=== PATIENT | female | born 1985 | race Caucasian/White ===

== ENCOUNTER → 2018-03-19 | Outpatient (CLI) | payer BC ==
--- NOTE | 2018-03-19 15:20 | XR ---
EXAMINATION TYPE: XR foot complete RT DATE OF EXAM: 03/19/2018 COMPARISON: 02/17/2008 HISTORY: Right ankle pain TECHNIQUE: Right foot is examined in 3 projections. FINDINGS: Hallux valgus deformity is present. Some varus deformity of the fifth digit is present. No acute displaced fractures are evident. Soft tissues are unremarkable. Follow-up exams can be performed 7-10 days from acute trauma for continued pain. IMPRESSION: 1. No acute osseous abnormality three-view right foot
--- NOTE | 2018-03-19 15:21 | XR ---
EXAMINATION TYPE: XR ankle complete RT DATE OF EXAM: 03/19/2018 COMPARISON: None HISTORY: Rolled ankle, pain TECHNIQUE: Three-view right ankle FINDINGS: Minimal soft tissue swelling is over the lateral malleolus. Ankle mortise is intact. No dis placed fractures are evident. Achilles tendon calcaneal heel spur is present. Follow-up exams can be performed 7-10 days from acute trauma for continued pain IMPRESSION: 1. Mild soft tissue swelling lateral malleolus.
== END ==
LOC: RADXRYALE 13:54
PROVIDERS: ATTEND Physician Assistant Medical
DX: M79.89 Other specified soft tissue disorders (principal); M25.571 Pain in right ankle and joints of right foot

== ENCOUNTER → 2019-07-25 | Outpatient (CLI) | payer BC | END | disposition home or self-care (01) | LOC: LABWHC1 14:02 | PROVIDERS: ATTEND Obstetrics & Gynecology | DX: O20.0 Threatened abortion (principal) | CPT/HCPCS: 36415; 84702 ==

== ENCOUNTER → 2020-10-01 | Outpatient (CLI) | payer BC | END | disposition home or self-care (01) | LOC: LABWHC1 10:36 | PROVIDERS: ATTEND Obstetrics & Gynecology | DX: N92.6 Irregular menstruation, unspecified (principal) | CPT/HCPCS: 36415; 84702 ==

== ENCOUNTER → 2020-10-04 | Outpatient (CLI) | payer BC | END | disposition home or self-care (01) | LOC: LABWHC1 07:43 | PROVIDERS: ATTEND Obstetrics & Gynecology | DX: O20.0 Threatened abortion (principal); Z3A.00 Weeks of gestation of pregnancy not specified | CPT/HCPCS: 36415; 84702 ==

== ENCOUNTER → 2020-10-14 | Outpatient (CLI) | payer BC | END | disposition home or self-care (01) | LOC: LABWHC1 09:44 | PROVIDERS: ATTEND Obstetrics & Gynecology | DX: O03.9 Complete or unspecified spontaneous abortion without complication (principal); Z3A.00 Weeks of gestation of pregnancy not specified | CPT/HCPCS: 36415; 84702 ==

== ENCOUNTER → 2020-10-25 | Outpatient (CLI) | payer BC | END | disposition home or self-care (01) | LOC: LABWHC1 07:51 | PROVIDERS: ATTEND Obstetrics & Gynecology | DX: O20.0 Threatened abortion (principal); Z3A.00 Weeks of gestation of pregnancy not specified | CPT/HCPCS: 36415; 84702 ==

== ENCOUNTER → 2020-11-01 | Outpatient (CLI) | payer BC ==
[2020-11-01 11:03] LABS: Basophils % (A) 0 %; Eosinophils # (A) 0.2 k/uL (0-0.7); Eosinophils % (A) 2 %; HCT 42.9 % (34.0-46.0); HGB 14.9 gm/dL (11.4-16.0); Lymphocytes # (A) 3.5 k/uL (1.0-4.8); Lymphocytes % (A) 43 %; MCH 31.7 pg (25.0-35.0); MCHC 34.8 g/dL (31.0-37.0); MCV 91.2 fL (80.0-100.0); Mean Platelet Volume 7.7; Monocytes # (A) 0.3 k/uL (0-1.0); Monocytes % (A) 4 %; Neutrophils # (A) 4.1 k/uL (1.3-7.7); Neutrophils % (A) 50 %; Platelet Count 223 k/uL (150-450); RDW 12.4 % (11.5-15.5); WBC 8.2 k/uL (3.8-10.6)
== END | disposition home or self-care (01) ==
LOC: LABPAT 09:07
PROVIDERS: ATTEND Obstetrics & Gynecology
DX: Z01.812 Encounter for preprocedural laboratory examination (principal)
CPT/HCPCS: 36415; 85025

== ENCOUNTER 2020-11-02 11:15 | Day surgery (SDC) | payer BC ==
[2020-10-29 09:13] VITALS: BMI 35.6
--- NOTE | 2020-11-02 08:52 | P.HPOB ---
History of Present Illness H&P Date: 11/02/20 Chief Complaint: blighted ovum 35 year old with blighted ovum presents for suction D&C. Review of Systems All systems: negative Constitutional: Denies chills, Denies fever Eyes: denies blurred vision, denies pain Ears, nose, mouth and throat: Denies headache, Denies sore throat Cardiovascular: Denies chest pain, Denies shortness of breath Respiratory: Denies cough Gastrointestinal: Denies abdominal pain, Denies diarrhea, Denies nausea, Denies vomiting Genitourinary: Denies dysuria, Denies hematuria Musculoskeletal: Denies myalgias Integumentary: Denies pruritus, Denies rash Neurological: Denies numbness, Denies weakness Psychiatric: Denies anxiety, Denies depression Endocrine: Denies fatigue, Denies weight change Past Medical History Past Medical History: No Reported History History of Any Multi-Drug Resistant Organisms: None Reported Past Surgical History: Adenoidectomy, Ear Surgery Additional Past Surgical History / Comment(s): SURG. FOR A PERF. EAR DRUM Past Anesthesia/Blood Transfusion Reactions: No Reported Reaction Past Psychological History: No Psychological Hx Reported Smoking Status: Current every day smoker Past Alcohol Use History: None Reported Past Drug Use History: None Reported - Past Family History Father Family Medical History: Unable to Obtain Medications and Allergies Home Medications Medication Instructions Recorded Confirmed Type No Known Home Medications 10/29/20 10/29/20 History Allergies Allergy/AdvReac Type Severity Reaction Status Date / Time No Known Allergies Allergy Verified 10/29/20 09:05 Exam Osteopathic Statement: *. No significant issues noted on an osteopathic structural exam other than those noted in the History and Physical/Consult. HEart: RRR Lungs: CTAB Abdomen: soft, nontender Extremeties: neg jj's Assessment and Plan (1) Blighted ovum Status: Acute Code(s): O02.0 - BLIGHTED OVUM AND NONHYDATIDIFORM MOLE SNOMED Code(s): 97603925 Plan: 1. suction D&C
[~2020-11-02 11:15] MED LIST: DEXAMETHASONE SOD PHOSPHATE 4 MG/ML 1 ML VIAL IV ONE; LACTATED RINGERS 1,000 ML IV SCH; LIDOCAINE 1% (10MG/ML) FOR IV START INTRADERMA PRN; ONDANSETRON 4 MG/2 ML VIAL IVP ONE; Pre Op ABX Message 1 EACH MISC MISCELLANE ONE; SCOPOLAMINE 1.5MG/72HR PATCH TRANSDERM ONE
[2020-11-02] MEDS ORDERED: KETOROLAC 15 MG/ML 1 ML VIAL ONE (13:13)
[2020-11-02] MEDS ORDERED: PROPOFOL 10 MG/ML 20 ML VIAL IV ONE (13:13)
[2020-11-02] MEDS ORDERED: fentaNYL (PF) 50 MCG/ML 2 ML AMP ONE (13:13)
[2020-11-02] MEDS ORDERED: LIDOCAINE 1% INJ 10MG/ML (20 ML MDV) ONE (13:13)
[2020-11-02] MEDS ORDERED: MIDAZOLAM 2 MG/2 ML VIAL ONE (13:13)
--- NOTE | 2020-11-02 13:42 | P.OP ---
Date of Procedure: 11/02/20 Preoperative Diagnosis: 1. blighted ovum Postoperative Diagnosis: 1.blighted ovum Procedure(s) Performed: Suction D&C Anesthesia: MAC Surgeon: Anne-Marie Hernandez Estimated Blood Loss (ml): 200 IV fluids (ml): 300 Urine output (ml): 25 Pathology: other (Uterine contents) Condition: stable Disposition: PACU Operative Findings: A large amount of uterine contents Description of Procedure: Patient taken the operating general anesthesia was obtained without difficulty. She prepped draped in normal sterile fashion dorsal lithotomy position, legs placed in stirrups. Bladder was drained of all urine. Weighted speculum placed in vagina and the anterior lip the cervix was grasped with a sickle tooth tenaculum. Cervix is dilated to #8 Hegar dilator. Suction curet was passed several times to ensure all blood and tissue had been removed. Sharp curet was also used to remove some tissue. Hemostasis was achieved. All instruments removed from the vagina. Patient to our procedure well, sponge and instrument counts correct 2. She is taken to recovery in stable condition.
[2020-11-02 13:55] VITALS: TEMP 97.1
[2020-11-02] MEDS: HYDROmorphone 0.5 MG/0.5 ML SYRINGE IVP PRN ×2 (14:10→14:23)
[2020-11-02] MEDS ORDERED: LACTATED RINGERS 1,000 ML IV ONE (14:29)
[2020-11-02] MEDS ORDERED: diphenhydrAMINE 50 MG/ML 1 ML VIAL ONE (14:30)
[2020-11-02] MEDS ORDERED: diphenhydrAMINE 50 MG/ML 1 ML VIAL IVP ONE (14:32)
[2020-11-02 14:55] VITALS: RESP 16
[2020-11-02 15:25] VITALS: BP 110/72; PULSE 60
== END 2020-11-02 15:28 | disposition home or self-care (01) ==
LOC: OR 11:15
PROVIDERS: ATTEND Obstetrics & Gynecology
DX: O02.0 Blighted ovum and nonhydatidiform mole (principal); F17.200 Nicotine dependence, unspecified, uncomplicated
CPT/HCPCS: 59820; 86900; 86901; 88305; 86850; J2250; J1200; J1100; J2405; J2001; J3010; J1885; J2704; J1170

== ENCOUNTER 2022-02-12 06:00 | Inpatient (IN) | payer BC ==
[2022-02-12] MEDS ORDERED: TERBUTALINE 1 MG/ML VIAL SQ PRN (06:20)
[2022-02-12] MEDS ORDERED: LIDOCAINE 0.5% (PF) 5 MG/ML (50 ML SDV) SQ PRN (06:20)
[2022-02-12] MEDS ORDERED: OXYTOCIN 30 UNITS/500 ML NS 30 UNIT in SALINE 1 500ML.BAG IV SCH ×2 (06:30→17:45)
[2022-02-12] MEDS: LACTATED RINGERS 1,000 ML IV SCH ×4 (06:34→19:50)
[2022-02-12 06:36] LABS: Basophils # (A) 0.1 k/uL (0-0.2); Basophils % (A) 1 %; Eosinophils # (A) 0.1 k/uL (0-0.7); Eosinophils % (A) 1 %; HCT 38.1 % (34.0-46.0); Lymphocytes # (A) 2.3 k/uL (1.0-4.8); Lymphocytes % (A) 24 %; MCH 33.1 pg (25.0-35.0); MCHC 36.7 g/dL (31.0-37.0); Mean Platelet Volume 8.2; Monocytes # (A) 0.3 k/uL (0-1.0); Monocytes % (A) 4 %; Neutrophils # (A) 6.5 k/uL (1.3-7.7); Neutrophils % (A) 69 %; Platelet Count 232 k/uL (150-450); RBC 4.23 m/uL (3.80-5.40); RDW 13.4 % (11.5-15.5); WBC 9.4 k/uL (3.8-10.6)
--- NOTE | 2022-02-12 09:16 | P.HPOB ---
History of Present Illness H&P Date: 02/12/22 Chief Complaint: Induction of labor 36 year old presents at 40 weeks 3 days for induction of labor. Her cervix is 1-2 cm dilated, 60% effaced, and -2 station. She is edin irregularly. heart tones 135 with moderate variability and reactive. Review of Systems All systems: negative Constitutional: Denies chills, Denies fever Eyes: denies blurred vision, denies pain Ears, nose, mouth and throat: Denies headache, Denies sore throat Cardiovascular: Denies chest pain, Denies shortness of breath Respiratory: Denies cough Gastrointestinal: Denies abdominal pain, Denies diarrhea, Denies nausea, Denies vomiting Genitourinary: Denies dysuria, Denies hematuria Musculoskeletal: Denies myalgias Integumentary: Denies pruritus, Denies rash Neurological: Denies numbness, Denies weakness Psychiatric: Denies anxiety, Denies depression Endocrine: Denies fatigue, Denies weight change Past Medical History Past Medical History: No Reported History Additional Past Medical History / Comment(s): Obstetric history: Patient has had 3 spontaneous abortions and 2 normal vaginal deliveries. Blood type O+, antibodies negative, rubella immune, RPR reactive but treponemal antibody negative GBS negative, hepatitis B negative History of Any Multi-Drug Resistant Organisms: None Reported Past Surgical History: Adenoidectomy, Ear Surgery Additional Past Surgical History / Comment(s): SURG. FOR A PERF. EAR DRUM Past Anesthesia/Blood Transfusion Reactions: No Reported Reaction Past Psychological History: No Psychological Hx Reported Smoking Status: Current every day smoker Past Alcohol Use History: None Reported Past Drug Use History: None Reported - Past Family History Father Family Medical History: Unable to Obtain Medications and Allergies Home Medications Medication Instructions Recorded Confirmed Type Ibuprofen [Motrin] 600 mg PO Q6HR PRN #30 tab 11/02/20 Rx Allergies Allergy/AdvReac Type Severity Reaction Status Date / Time No Known Allergies Allergy Verified 11/02/20 11:47 Exam Osteopathic Statement: *. No significant issues noted on an osteopathic structural exam other than those noted in the History and Physical/Consult. Vital Signs Temp Pulse Resp BP Pulse Ox 02/12/22 06:19 96.8 F L 89 16 121/79 99 Intake and Output 02/11/22 02/12/22 02/12/22 22:59 06:59 14:59 Other: Weight 107.955 kg Heart: Regular rate and rhythm Lungs: Clear to auscultation bilaterally Abdomen: Soft, nontender Extremities: Negative Homans sign Results Result Diagrams: 02/12/22 06:15 Assessment and Plan (1) Encounter for induction of labor Current Visit: Yes Status: Acute Code(s): Z34.90 - ENCNTR FOR SUPRVSN OF NORMAL , UNSP, UNSP TRIMESTER SNOMED Code(s): 726416760 Plan: 1. induction of labor with amniotomy and pitocin 2. anticipate normal vaginal delivery
[2022-02-12] MEDS ORDERED: BUPIVACAINE (PF) 0.25% 30 ML VIAL ONE (13:04)
[2022-02-12] MEDS ORDERED: fentaNYL (PF) 50 MCG/ML 5 ML AMP ONE (13:04)
[2022-02-12] MEDS ORDERED: SODIUM CHLORIDE 0.9% 100 ML BAG ONE (13:04)
[2022-02-12] MEDS ORDERED: CITRIC ACID-SODIUM CITRATE 15 ML CUP PO ONE (16:50)
[2022-02-12] MEDS ORDERED: OXYTOCIN 30 UNITS/500 ML NS BAG IV ONE (17:08)
[2022-02-12] MEDS ORDERED: NALBUPHINE 10 MG/ML (1 ML AMP) ONE (17:08)
[2022-02-12] MEDS ORDERED: KETOROLAC 15 MG/ML 1 ML VIAL ONE (17:08)
[2022-02-12] MEDS ORDERED: MORPHINE SULFATE (PF) 0.3 MG/0.3 ML SYR ONE (17:08)
[2022-02-12] MEDS ORDERED: ONDANSETRON 4 MG/2 ML VIAL IVP PRN (17:25)
[2022-02-12] MEDS ORDERED: NALOXONE 0.4 MG/ML 1 ML VIAL IV PRN (17:25)
[2022-02-12] MEDS ORDERED: diphenhydrAMINE 50 MG/ML 1 ML VIAL IVP PRN ×3 (17:25→17:45)
[2022-02-12] MEDS ORDERED: MORPHINE SULFATE 2 MG/ML SYRINGE IVP PRN (17:25)
[2022-02-12] MEDS ORDERED: SIMETHICONE 80 MG CHEWABLE PO PRN (17:45)
[2022-02-12] MEDS ORDERED: diphenhydrAMINE 50 MG CAP PO PRN (17:45)
[2022-02-12] MEDS ORDERED: diphenhydrAMINE 25 MG CAP PO PRN (17:45)
[2022-02-12] MEDS ORDERED: ZOLPIDEM 5 MG TAB PO PRN (17:45)
[2022-02-12] MEDS ORDERED: METOCLOPRAMIDE 5 MG/ML 2 ML VIAL IVP PRN (17:45)
--- NOTE | 2022-02-12 17:51 | P.OP ---
Date of Procedure: 02/12/22 Preoperative Diagnosis: 1. at 40 weeks 3 days 2. persistent category II heart tones Postoperative Diagnosis: same, nuchal Procedure(s) Performed: Primary low transverse Anesthesia: epidural Surgeon: Anne-Marie Hernandez Cell Liner #1: Chantell Gilbert Estimated Blood Loss (ml): 360 IV fluids (ml): 800 Urine output (ml): 400 Pathology: other (placenta) Condition: stable Disposition: floor Indications for Procedure: 36 year old presents at 40 weeks 3 days for induction of labor. Her cervix is 1-2 cm dilated, 60% effaced, and -2 station. She is edin irregularly. heart tones 135 with moderate variability and reactive. Pitocin augmentation was started and amniotomy performed seen thereafter. When the patient is uncomfortable she did get an epidural. Her cervix was 4-5 cm dilated and she continued to have some variable decelerations with moderate variability but the decelerations were prolonged repetitive.Category II FHT managed following algorithm including initiation of corrective measure position changes, IV fluid bolus and managing Pitocin levels. With the persistent presence of deep variable decelerations, a patient-centered huddle was held and the need for an expedited deliver was discussed with the patient. It is our clinical recommendation to proceed with the delivery and after questions were answered to the patient agrees to proceed with the recommended plan. Operative Findings: Viable female, Apgars 9, 9, weight 7 lbs. 3 oz. Baby in LOT position. Normal uterus, tubes, ovaries Description of Procedure: Patient was taken to the operating room where spinal anesthesia was found be adequate. She was prepped and draped in normal sterile fashion in dorsal supine position with a leftward tilt. Pfannenstiel skin incision was made the scalpel and carried through to the underlying layer of fascia with the scalpel. Fascia was incised in midline and carried bilaterally with the Velásquez scissors. The superior aspect of the fascial incision was grasped with [place] clamps elevated and the underlying rectus muscles dissected off with the Velásquez's. Attention was then turned to inferior aspect of same incision which in a similar fashion was grasped tented up and the underlying rectus muscles dissected off with the Velásquez's. The rectus muscles were the midline and the peritoneum was identified tented up and entered sharply with the scalpel. The incision was extended superiorly and inferiorly with good visualization of the bladder. The bladder blade was inserted and the vesicouterine peritoneum was incised the Metzenbaums then carried bilaterally and bladder flap created digitally. A low transverse incision was then made on the uterus with the scalpel. This was carried bilaterally and digital manner. Infant's head delivered atraumatically, nose and mouth bulb suctioned, cord clamped and cut, infant handed off to waiting nurses. Apgars 9,9, weight 7 lbs. 3 oz. Placenta delivered manually, intact with three-vessel cord. The uterus is exteriorized and cleared of all clots and debris. The uterine incision was closed with 0 Vicryl in a running locked fashion. Second layer of the same sutures used in imbricating fashion to obtain excellent hemostasis. Bladder flap was then reapproximated using 2-0 Vicryl in a running fashion. Both ovaries and tubes appeared normal. The uterus was placed back into the abdomen. The peritoneum was reapproximated using 2-0 Vicryl in a running fashion. The muscles were reapproximated using 2- 0 Vicryl in interrupted fashion. The fascia was reapproximated using 0 Vicryl in a running fashion. The subcutaneous tissues closed with 3-0 Vicryl running fashion. The skin was closed meenakshi. Patient tolerated the procedure well, sponge and instrument counts were correct times 2 and she was taken to the recovery room in stable condition.
[2022-02-12] MEDS: ACETAMINOPHEN TAB 500 MG TAB PO SCH (19:46)
[2022-02-12] MEDS: SENNOSIDES-DOCUSATE SODIUM 1 EACH TAB PO SCH (19:48)
[2022-02-13] MEDS: KETOROLAC 15 MG/ML 1 ML VIAL IVP SCH ×2 (02:12→08:31)
[2022-02-13] MEDS: IBUPROFEN 600 MG TAB PO SCH ×4 (02:13→20:30)
[2022-02-13] MEDS: LACTATED RINGERS 1,000 ML IV SCH (05:47)
[2022-02-13 06:42] LABS: Basophils % (A) 0 %; Eosinophils # (A) 0.1 k/uL (0-0.7); Eosinophils % (A) 1 %; HCT 34.2 % (34.0-46.0); HGB 12.3 gm/dL (11.4-16.0); Lymphocytes # (A) 1.8 k/uL (1.0-4.8); Lymphocytes % (A) 21 %; MCH 32.9 pg (25.0-35.0); MCV 91.4 fL (80.0-100.0); Mean Platelet Volume 8.1; Monocytes # (A) 0.3 k/uL (0-1.0); Monocytes % (A) 3 %; Neutrophils # (A) 6.4 k/uL (1.3-7.7); Neutrophils % (A) 73 %; Platelet Count 192 k/uL (150-450); RBC 3.74 m/uL (3.80-5.40); RDW 13.5 % (11.5-15.5); WBC 8.7 k/uL (3.8-10.6)
[2022-02-13] MEDS: SENNOSIDES-DOCUSATE SODIUM 1 EACH TAB PO SCH ×2 (08:31→22:59)
--- NOTE | 2022-02-13 10:46 | P.PN ---
Progress Note - Text Date: 02/13/2022 Time: 07:13 The patient is status post section Vital signs stable VAS: 0-10 Patient has no complaints of pain. The patient incurred some minimal itching yesterday, this itching is now subsiding. Pain meds to be managed by service.
[2022-02-13] MEDS: ACETAMINOPHEN TAB 500 MG TAB PO SCH ×4 (11:06→22:59)
[2022-02-13 18:08] VITALS: RESP 16
[2022-02-14] MEDS: IBUPROFEN 600 MG TAB PO SCH ×3 (03:08→09:10)
[2022-02-14] MEDS: LACTATED RINGERS 1,000 ML IV SCH (03:10)
[2022-02-14] MEDS: ACETAMINOPHEN TAB 500 MG TAB PO SCH (05:22)
[2022-02-14 07:59] VITALS: BP 114/75; PULSE 71; TEMP 97.7
[2022-02-14] MEDS: SENNOSIDES-DOCUSATE SODIUM 1 EACH TAB PO SCH (08:29)
--- NOTE | 2022-02-14 09:16 | P.PNOBGPC ---
Subjective - Subjective Principal diagnosis: S/P 1*LTCS POD #1 Interval history: Seen and examined. Denies nausea, vomiting, chest pain, shortness of breath or calf pain. Patient reports: Reports appetite normal, Reports voiding normally, Reports pain well controlled, Reports ambulating normally : doing well Objective - Vital Signs Latest vital signs: Vital Signs Temp Pulse Resp BP Pulse Ox 02/14/22 07:58 97.7 F 71 16 114/75 98 02/14/22 00:00 98.9 F 74 16 110/67 02/13/22 16:00 98.3 F 78 16 124/73 97 02/13/22 14:00 17 97 02/13/22 11:18 97.7 F 71 16 108/73 97 02/13/22 10:00 17 97 Intake and Output 02/13/22 02/14/22 02/14/22 22:59 06:59 14:59 Other: Voiding Method Toilet - Exam Lungs: bilateral: normal Chest: Normal S1, Normal S2 Extremities: Present: normal Abdomen: Present: normal appearance, soft. Absent: distention, tenderness Incision: Present: normal, dry, intact Uterus: Present: normal, firm Assessment and Plan (1) Encounter for induction of labor Current Visit: Yes Status: Resolved Code(s): Z34.90 - ENCNTR FOR SUPRVSN OF NORMAL , UNSP, UNSP TRIMESTER SNOMED Code(s): 694578163 (2) Status post primary low transverse section Current Visit: Yes Status: Acute Code(s): Z98.891 - HISTORY OF UTERINE SCAR FROM PREVIOUS SURGERY SNOMED Code(s): 055531458 Plan: 1. cont pp care
--- NOTE | 2022-02-14 09:18 | P.DS ---
Providers Date of admission: 02/12/22 06:00 Expected date of discharge: 02/14/22 Attending physician: Anne-Marie Hernandez Primary care physician: Stated None - Discharge Diagnosis(es) (1) Encounter for induction of labor Current Visit: Yes Status: Resolved (2) Status post primary low transverse section Current Visit: Yes Status: Acute Hospital Course: Patient presented For Induction of Labor. She Underwent a Primary Low Transverse for Category 2 Heart Tones. Post Operative Course Was Uneventful. She Denies Nausea, Vomiting, Chest Pain, Shortness of Breath or Calf Pain. Patient Will Be Discharged Home Postoperative Day 2 in Stable Condition to Follow-Up with Me in One Week. Plan - Discharge Summary New Discharge Prescriptions: New Ibuprofen [Motrin] 600 mg PO Q6H #30 tab oxyCODONE HCL [OxyIR] 5 mg PO Q4HR PRN #18 tab PRN Reason: Pain Scale 4 - 6 No Action Ibuprofen [Motrin] 600 mg PO Q6HR PRN #30 tab PRN Reason: Mild Pain Or Fever >= 100.5 Discharge Medication List Ibuprofen [Motrin] 600 mg PO Q6HR PRN #30 tab 11/02/20 [Rx] Ibuprofen [Motrin] 600 mg PO Q6H #30 tab 02/14/22 [Rx] oxyCODONE HCL [OxyIR] 5 mg PO Q4HR PRN #18 tab 02/14/22 [Rx] Follow up Appointment(s)/Referral(s): Anne-Marie Hernandez DO [Doctor of Osteopathic Medicine] - 1 Week Discharge Disposition: HOME SELF-CARE
== END 2022-02-14 10:15 | disposition home or self-care (01) | DRG 788 ==
LOC: 4FBP 06:00
PROVIDERS: ADMIT Obstetrics & Gynecology; ATTEND Obstetrics & Gynecology
PROC: 3E033VJ Introduction of Other Hormone into Peripheral Vein, Percutaneous Approach (ICD-10-PCS; 2022-02-12)
PROC: 4A0HXCZ Measurement of Products of Conception, Cardiac Rate, External Approach (ICD-10-PCS; 2022-02-12)
PROC: 10907ZC Drainage of Amniotic Fluid, Therapeutic from Products of Conception, Via Natural or Artificial Opening (ICD-10-PCS; 2022-02-12)
PROC: 10D00Z1 Extraction of Products of Conception, Low, Open Approach (ICD-10-PCS; principal; 2022-02-12 17:08)
DX: O76 Abnormality in fetal heart rate and rhythm complicating labor and delivery (principal); F17.210 Nicotine dependence, cigarettes, uncomplicated; O99.334 Smoking (tobacco) complicating childbirth; O99.73 Diseases of the skin and subcutaneous tissue complicating the puerperium; L29.9 Pruritus, unspecified; Z37.0 Single live birth; Z3A.40 40 weeks gestation of pregnancy; Z87.59 Personal history of other complications of pregnancy, childbirth and the puerperium
CPT/HCPCS: 85025; 86850; 86900; 86901; 88307